=== PATIENT | male | born 2000 | race Caucasian/White ===

== ENCOUNTER 2023-08-23 22:53 | Emergency (ER) | payer BC, SELFPAY ==
[2023-08-23 23:04] VITALS: BP 180/102
--- NOTE | 2023-08-24 00:06 | ED.SKININJ ---
HPI-Injury
General
Chief Complaint: Skin Surface Trauma
Source: patient
Exam Limitations: none
Time Seen by Provider: 08/23/23 23:13
Travel History
Have you had any contact with someone who has COVID-19?: No
Do you have any symptoms of coronavirus? Fever > 100 degrees, chills, cough, shortness of breath, sore throat, loss of taste or smell, muscle aches, or headache?: No
History of Present Illness-Injury
Is this injury a work related problem?: No
Is pt an associate of [facility]?: No
Initial Injury comments:
This is a 23 year old male that comes in with c/o laceration to the left thumb. States that they were throwing an ax. States that he throw the ax and it got stuck in the wall. States that he went to pull the ax out of the wall and he cut his thumb.
States that he has not had a Tetanus injection since he was young. Denies any fever, chills, chest pain, SOB, abd pain, nausea, vomiting, diarrhea, headache dizziness.
Past History
Past History
ED Past Medical History: None and Other (ADHD)
ED Past Surgical History: None
Social History
Tobacco: Non-smoker
Alcohol: Occasional
Personal: Single
Living: with family
Review of Systems
Review of Systems
All Other Systems: ROS reviewed and negative except as documented in HPI and ROS
Constitutional: Reports no symptoms; Denies fever or chills
EENT: Reports no symptoms
Respiratory: Reports no symptoms; Denies cough or trouble breathing
Cardiac: Denies chest pain
ABD/GI: Reports no symptoms; Denies abdominal pain, nausea, vomiting or diarrhea
: Reports no symptoms; Denies dysuria, frequency or urgency
Musculoskeletal: Reports no symptoms
Skin: Reports other (Laceration to the left thumb)
Neurological: Reports no symptoms; Denies dizzy or headache
Psychiatric: Reports no symptoms
Skin Exam
Laceration
Left Dorsal First Finger:
Length in cm: 4
Orientation: horizontal
Type of Laceration: simple
Any active bleeding?: low grade venous oozing
Distal skin color and temperature: normal-warm & good color
Normal distal neurovascular exam: Yes
Range of motion: full
Phy Exam
General Physical Exam
General Presentation: well appearing and no apparent distress
General age: appears stated age
General Skin: warm and dry
General Habitus: normal
General Mental: alert
Eye Exam
Eye Exam: EOMI
Musculoskeletal Exam
Musculoskeletal Exam: full ROM and other (Patient able to flex finger)
Skin Exam
Skin Exam: normal color, warm/dry, no rash, no petechia and other (laceration left dorsal aspect of thumb. )
Psychiatric Exam
Psychiatric Exam: normal mood/affect
Course
Orders/Labs/Results
Orders:
Orders
08/24/23 00:05
Tetanus/Diphth/Acelpertussis [Adacel] 0.5 ml IM .ONCE ONE
Thumb/Finger(s) 2 View Lt [CR Finger(s)/thumb Min 2 Vw Lt] Urgent
Comment:
Reason For Exam: CUT WITH AX
Indicate Which Finger:: Thumb
Vital Signs
Initial and Last Documented VS:
Initial Vital Signs
Temp Pulse Resp BP Pulse Ox
97.8 F 84 22 180/102 97
08/23/23 23:04 08/23/23 23:04 08/23/23 23:04 08/23/23 23:04 08/23/23 23:04
Last Documented Vital Signs
Temp Pulse Resp BP Pulse Ox
97.8 F 84 22 180/102 97
08/23/23 23:04 08/23/23 23:04 08/23/23 23:04 08/23/23 23:04 08/23/23 23:04
Procedures
Laceration Closure
Left Dorsal First Finger:
Status of Wound: clean
Size of Wound in cm: 4
Description of Wound Edges: sharp
Preparation: cleaned with saline
Anesthesia: 1% Lidocaine
Revision/Debridement: routine- no revision
Wound exploration: explored to base- no FB
Type of Closure: single layer closure
Skin Closure Material: 3-0 nylon
Number of sutures: 7
MDM/Problems Addressed
Differential Diagnosis Includes:
Laceration,
MDM/Problems Addressed:
This is a 23 year old male that comes in with c/o laceration to the left thumb after trying to pull an ax out of the wall. States that he cut his thumb when he pulled the ax out.
Will get X-ray to check for any bone involvement and suture laceration. Will also give Tetanus.
Chronic conditions affecting care:
NA
Acute Exacerbation and/or Progression of Chronic Illness:
NA
*Radiology
Radiology exam reviewed: preliminary read by ED provider (Left thumb- Negative for any fractures)
*Pulse Oximetry
Patient hypoxic: no
*EKG
Interpreted by ED Provider?: NA
Rate: EKG- N/A
*Production Weigher Interpretation
Rate: Production Weigher- N/A
*Critical Care Note
Total Time (30-74mins, 75-104mins- exclusive of procedures): Not Applicable
ED Attending Note
-
Portions of this chart may have been created with voice recognition software.� Occasional wrong word or��sound alike� substitutions may have occurred due to the inherent limitations of voice recognition software.
Discharge Plan
Departure
Patient Disposition: Home (Routine Discharge)
Date of Disposition: 08/24/23
Time of Disposition: 00:33
Patient with high blood pressure during this ER visit?: Yes
Condition: Good
Covid-19: Not Applicable
Discharge Problem:
Laceration of left thumb
Instructions: Laceration Repair With Stitches (DC), BLOOD PRESSURE
Prescriptions:
No Action
amoxicillin-pot clavulanate 875-125 mg tablet
1 tab PO BID Qty: 14 0RF
Referrals:
NONE,* [Family Provider] -
Activity Restrictions/Additional Instructions:
As discussed, there are no fractures noted on the thumb. You have had 7 suture placed for your laceration. Please keep this area dry for the next 24 hours. After this you can gently pat over the area but do not submerge in water. You have received
a Tetanus vaccine here. Please follow up with the family doctor in the next 10-14 days for suture removal. IF YOU HAVE ANY REDNESS, SWELLING, DRAINAGE OR YOU HAVE ANY OTHER CONCERNS PLEASE RETURN TO THE EMERGENCY ROOM
Interventions
Interventions:
*Risk Screen - Suicide Last Done: 08/23/23 23:04
*General Assessment Last Done: 08/23/23 23:26
*Neglect/Abuse Screening Last Done: 08/23/23 23:04
*ED COVID-19 Vaccine History Last Done: 08/23/23 23:26
ED-Skin Assessment Last Done: 08/23/23 23:26
[2023-08-24] MEDS: ADACEL 0.5 ML IM (00:12)
[2023-08-24 00:34] VITALS: BP 140/91
== END 2023-08-24 00:48 | disposition home or self-care (01) ==
LOC: EMR 22:53
PROVIDERS: EMERGENCY PHYSICIAN Student in an Organized Health Care Education/Training Program
DX: S61.012A Laceration without foreign body of left thumb without damage to nail, initial encounter (principal); W27.0XXA Contact with workbench tool, initial encounter; Z23 Encounter for immunization; F90.9 Attention-deficit hyperactivity disorder, unspecified type
CPT/HCPCS: 99282; 12002; 90471; 73140; 90715